=== PATIENT | female | born 1935 | race Caucasian/White ===

== ENCOUNTER 2017-07-03 14:41 | Inpatient (IN) | payer MEDICARE, OTHER ==
[~2017-07-03] VITALS: Ht 167.6 cm; Wt 78.1 kg
[2017-07-03 14:51] VITALS: BP 205/93; PULSE 67; RESP 18; TEMP 98.3; O2SAT 96
[2017-07-03 19:20] VITALS: BP 191/90; PULSE 75; RESP 18; O2SAT 97
--- NOTE | 2017-07-03 19:59 | PD ---
HPI Chief Complaint: Psychiatric Symptoms Time Seen by Provider: 19:19 Travel History International Travel<30 days: No Contact w/Intl Traveler<30days: No Traveled to known affect area: No History of Present Illness HPI 81-year-old female presents to the emergency room with her daughter for evaluation of anxiety and depression for the past month. Patient's daughter states she has had worsening mental status over the past month it has become increasingly emotionally dependent on her. Daughter states she can no longer leave the house because the patient becomes so anxious and panicky that she constantly calls asking where she is, complaining of chest tightness, shortness of breath, and nausea radiating into her throat and states she needs to go to the hospital. Symptoms are constant but are slightly better when she is around her daughter. She paces around the house, tearful, and often reminisce is about the past. Daughter states she has also had increasing confusion and patient admits to increasing fogginess. She can offer no reason for feeling anxious or depressed. No suicidal or homicidal ideation, hallucinations, or delusions. Denies drug use or alcohol use. She has been seeing a new psychiatrist over the past month who recently prescribed her new medications for anxiety. Patient states she has been taking Vistaril 3 times daily without any relief. 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 She has 3 stents. She went to [facility] one month ago for these symptoms and was diagnosed with "silent heart attack." She was hospitalized for 3 days. Patient 's daughter states her blood pressure is consistently elevated over 200s and they cannot get it under control. She ambulates with a cane. PFSH Past Medical History Alzheimer's Disease: Yes Anxiety: Yes Depression: Yes Cancer: Yes (SKIN AND BREAST) Cardiovascular Problems: Yes High Cholesterol: Yes Dementia: Yes Hypertension: Yes Myocardial Infarction: Yes Tetanus Vaccination: Unknown Influenza Vaccination: No ?: Not Past Surgical History Coronary Stent: Yes Social History Alcohol Use: No Tobacco Use: No Substance Use: No Allergies-Medications (Allergen,Severity, Reaction): Coded Allergies: codeine (Verified Allergy, Unknown, 07/03/17) latex (Verified Allergy, Unknown, 07/03/17) Review of Systems Except as stated in HPI: all other systems reviewed are Neg Physical Exam Narrative GENERAL: Well-nourished, well-developed female in no acute distress. Afebrile. SKIN: Focused skin assessment warm/dry. HEAD: Normocephalic. EYES: No scleral icterus. No injection or drainage. NECK: Supple, trachea midline. No JVD or lymphadenopathy. CARDIOVASCULAR: Regular rate and rhythm without murmurs, gallops, or rubs. RESPIRATORY: Breath sounds equal bilaterally. No accessory muscle use. PSYCHIATRIC: No delusional thought processes. No hallucinations. Depressed mood. Tearful. Normal affect. Data Data Last Documented VS Vital Signs Date Time Temp Pulse Resp B/P (MAP) Pulse Ox O2 Delivery O2 Flow Rate FiO2 07/03/17 19:20 75 18 191/90 (123) 97 07/03/17 14:51 98.3 Room Air Orders Orders Complete Blood Count With Diff (07/03/17 19:49) Comprehensive Metabolic Panel (07/03/17 19:49) Thyroid Stimulating Hormone (07/03/17 19:49) Urinalysis - C+S If Indicated (07/03/17 19:49) Electrocardiogram (07/03/17 19:49) Psych Screen (07/03/17 19:49) Drug Screen, Random Urine (07/03/17 19:49) Alcohol (Ethanol) (07/03/17 19:49) Troponin I (07/03/17 19:52) Ckmb (Isoenzyme) Profile (07/03/17 19:52) MDM Medical Decision Making Medical Screen Exam Complete: Yes Emergency Medical Condition: Yes Medical Record Reviewed: Yes Differential Diagnosis Dementia, Alzheimer's disease, depression, anxiety, CAD Narrative Course 81-year-old female presents to the emergency room for evaluation of anxiety and depression that has been increasing over the past month. Patient presents with daughter who provides most of the history. States she has been having increasing anxiety after her daughter leaves for work. Patient reports chest tightness that radiates into her throat with associated nausea and shortness of breath. States she has been having this feeling for the past month and it is constant. Worsened when her daughter leaves the house. She cannot a why she is anxious. Denies suicidal or homicidal ideation. She has also had increasing confusion and fogginess. Of note, patient was hospitalized a few weeks ago for "silent heart attack." She has 3 stents and 3 previous heart attacks. She is tearful during exam. I suspect dementia or beginning stages of Alzheimer's disease. IV access established and basic labs obtained. Patient signed out to nighttime provider. Condition: Stable Anisa Lynch Jul 03, 2017 19:59
[2017-07-03 21:35] LABS: AUTOMATED NEUTROPHIL # 6.7 TH/MM3 (1.8-7.7); BASOPHIL # 0.1 TH/MM3 (0-0.2); BASOPHIL % 0.9 % (0.0-2.0); EOSINOPHIL # 0.1 TH/MM3 (0-0.4); EOSINOPHIL % 1.1 % (0.0-4.0); HEMATOCRIT 42.3 % (35.0-46.0); HEMO FLAGS DIFF FINAL; LYMPHOCYTE # 1.8 TH/MM3 (1.0-4.8); MEAN CELL VOLUME 83.3 FL (80.0-100.0); MEAN CORPUSCULAR HEMOGLOBIN 28.2 PG (27.0-34.0); MEAN CORPUSCULAR HGB CONC 33.9 % (32.0-36.0); MONO % 8.6 % (0.0-8.0); NEUT % 70.4 % (16.0-70.0); PLATELET COUNT 327 TH/MM3 (150-450); RED BLOOD COUNT 5.07 MIL/MM3 (4.00-5.30); RED CELL DISTRIBUTION WIDTH 13.7 % (11.6-17.2); WHITE BLOOD COUNT 9.5 TH/MM3 (4.0-11.0)
[2017-07-03 21:47] LABS: ALCOHOL LESS THAN 3 MG/DL (0-5); ANION GAP 8 MEQ/L (5-15); AST (GOT) 20 U/L (15-37); BICARBONATE 24.7 MEQ/L (21.0-32.0); BLOOD UREA NITROGEN 17 MG/DL (7-18); CHLORIDE 108 MEQ/L (98-107); GLOMERULAR FILTRATION RATE 67 ML/MIN (>89); POTASSIUM 3.4 MEQ/L (3.5-5.1); SODIUM (NA) 141 MEQ/L (136-145)
[2017-07-03 21:48] LABS: ALT (GPT) 29 U/L (10-53)
[2017-07-03 21:52] LABS: CREATINE KINASE 155 U/L (26-192)
[2017-07-03 21:58] LABS: ALKALINE PHOSPHATASE 83 U/L (45-117); TOTAL BILIRUBIN ADULT 0.3 MG/DL (0.2-1.0)
[2017-07-03 22:05] LABS: CKMB 2.4 NG/ML (0.5-3.6)
--- NOTE | 2017-07-03 22:11 | PD ---
Physical Exam Narrative Patient was seen by my foundation assistant and signed out to me. Data Data Last Documented VS Vital Signs Date Time Temp Pulse Resp B/P (MAP) Pulse Ox O2 Delivery O2 Flow Rate FiO2 07/03/17 19:20 75 18 191/90 (123) 97 07/03/17 14:51 98.3 Room Air Orders Orders Complete Blood Count With Diff (07/03/17 19:49) Comprehensive Metabolic Panel (07/03/17 19:49) Thyroid Stimulating Hormone (07/03/17 19:49) Urinalysis - C+S If Indicated (07/03/17 19:49) Psych Screen (07/03/17 19:49) Drug Screen, Random Urine (07/03/17 19:49) Alcohol (Ethanol) (07/03/17 19:49) Troponin I (07/03/17 19:52) Ckmb (Isoenzyme) Profile (07/03/17 19:52) CKMB (07/03/17 21:05) CKMB% (07/03/17 21:05) Labs Laboratory Tests Test 07/03/17 21:05 White Blood Count 9.5 TH/MM3 Red Blood Count 5.07 MIL/MM3 Hemoglobin 14.3 GM/DL Hematocrit 42.3 % Mean Corpuscular Volume 83.3 FL Mean Corpuscular Hemoglobin 28.2 PG Mean Corpuscular Hemoglobin Concent 33.9 % Red Cell Distribution Width 13.7 % Platelet Count 327 TH/MM3 Mean Platelet Volume 7.6 FL Neutrophils (%) (Auto) 70.4 % Lymphocytes (%) (Auto) 19.0 % Monocytes (%) (Auto) 8.6 % Eosinophils (%) (Auto) 1.1 % Basophils (%) (Auto) 0.9 % Neutrophils # (Auto) 6.7 TH/MM3 Lymphocytes # (Auto) 1.8 TH/MM3 Monocytes # (Auto) 0.8 TH/MM3 Eosinophils # (Auto) 0.1 TH/MM3 Basophils # (Auto) 0.1 TH/MM3 CBC Comment DIFF FINAL Differential Comment Blood Urea Nitrogen 17 MG/DL Creatinine 0.82 MG/DL Random Glucose 92 MG/DL Total Protein 7.9 GM/DL Albumin 3.8 GM/DL Calcium Level 9.6 MG/DL Alkaline Phosphatase 83 U/L Aspartate Amino Transf (AST/SGOT) 20 U/L Alanine Aminotransferase (ALT/SGPT) 29 U/L Total Bilirubin 0.3 MG/DL Sodium Level 141 MEQ/L Potassium Level 3.4 MEQ/L Chloride Level 108 MEQ/L Carbon Dioxide Level 24.7 MEQ/L Anion Gap 8 MEQ/L Estimat Glomerular Filtration Rate 67 ML/MIN Total Creatine Kinase 155 U/L Creatine Kinase MB 2.4 NG/ML Troponin I LESS THAN 0.02 NG/ML Thyroid Stimulating Hormone 3rd Gen 1.320 uIU/ML Ethyl Alcohol Level LESS THAN 3 MG/DL MDM Supervised Visit with EMERALD: Yes Interpretation(s) 22:08 PM. CBC within normal limit. Potassium 3.4. Cardiac enzymes are normal. Alcohol less than 3. Narrative Course 22:11 PM. Patient is medically cleared for psychiatric evaluation and disposition. Condition: Stable Felix Phillip MD Jul 03, 2017 22:11
[2017-07-03] MEDS ORDERED: ALPRAZolam 0.5 MG TAB PO ONE (23:30)
[2017-07-03 23:47] LABS: BACTERIA, URINE RARE /hpf; BLOOD, URINE SMALL (NEG); COMMENT (UR) CULT NOT INDICATED; CULTURE IF INDICATED CULT NOT INDICATED; GLUCOSE,URINE NEG (NEG); KETONE, URINE NEG (NEG); MUCUS URINE FEW /lpf (OCC); NITRITE,URINE NEG (NEG); URINE COLOR LIGHT-YELLOW (YELLW/STRAW)
[2017-07-04] MEDS ORDERED: HYDR-755 PO (00:25)
[2017-07-04] MEDS ORDERED: AMLO5TAB2 PO (00:25)
[2017-07-04] MEDS ORDERED: ROSU1TAB8 PO (00:25)
[2017-07-04] MEDS ORDERED: ZOLP10TA3 PO (00:25)
[2017-07-04] MEDS ORDERED: NITR0.4S SL (00:25)
[2017-07-04] MEDS ORDERED: LOSA100T PO (00:25)
[2017-07-04] MEDS ORDERED: ASPI81CH37 CHEW (00:25)
[2017-07-04] MEDS ORDERED: METO100T PO (00:25)
[2017-07-04] MEDS ORDERED: TOVI4TAB PO (00:25)
[2017-07-04] MEDS ORDERED: BUSP10TA PO (00:25)
[2017-07-04] MEDS ORDERED: CLOP75TA PO (00:25)
[2017-07-04] MEDS ORDERED: MAGNESIUM HYDROXIDE SUSP 30 ML CUP PO PRN (04:15)
[2017-07-04] MEDS ORDERED: ALUMINUM/MAGNESIUM/SIMETH 30 ML CUP PO PRN (04:15)
[2017-07-04] MEDS ORDERED: LORazepam 2 MG/ML VIAL - age > 65 yrs IM PRN ×2 (04:15)
[2017-07-04] MEDS ORDERED: LORazepam 0.5 MG TAB age > 65 yrs PO PRN (04:15)
[2017-07-04 04:32] VITALS: BP 168/74; PULSE 72; RESP 14; O2SAT 96
[2017-07-04 05:00] VITALS: BP 185/82; PULSE 71; RESP 18; TEMP 97.5; O2SAT 96
[2017-07-04] MEDS: NICOTINE 21 MG/24 HR PATCH T-DERMAL SCH (09:00)
[2017-07-04] MEDS: busPIRone HCL 10 MG TAB PO SCH ×2 (09:00→20:24)
[2017-07-04] MEDS: ATORVASTATIN 40 MG TAB PO SCH (09:00)
[2017-07-04] MEDS: TOLTERODINE TARTRATE 4 MG CAP LA PO SCH (09:00)
[2017-07-04] MEDS: METOPROLOL TARTRATE 100 MG TAB PO SCH ×2 (09:04→20:24)
[2017-07-04] MEDS: LOSARTAN 50 MG TAB PO SCH (09:05)
[2017-07-04] MEDS: ASPIRIN 81 MG CHEW TAB PO SCH (09:05)
[2017-07-04] MEDS: amLODIPine BESYLATE 5 MG TAB PO SCH (09:06)
[2017-07-04] MEDS: CLOPIDOGREL 75 MG TAB PO SCH (09:06)
[2017-07-04 11:05] LABS: ANION GAP 9 MEQ/L (5-15); BICARBONATE 26.2 MEQ/L (21.0-32.0); BLOOD UREA NITROGEN 16 MG/DL (7-18); CHLORIDE 103 MEQ/L (98-107); GLOMERULAR FILTRATION RATE 72 ML/MIN (>89); POTASSIUM 3.8 MEQ/L (3.5-5.1); SODIUM (NA) 138 MEQ/L (136-145)
[2017-07-04 11:20] LABS: HDL CHOLESTEROL 51.2 MG/DL (40.0-60.0); LDL CHOLESTEROL 59 MG/DL (0-99); THYROXINE (T4) 9.1 MCG/DL (4.8-13.9)
[2017-07-04 13:57] VITALS: BP 121/64; PULSE 66; RESP 17
--- NOTE | 2017-07-04 14:20 | PD.CONS ---
HPI Service [facility] Hospitalists Consult Requested By Dr. Platt Reason for Consult Medical management, HTN Primary Care Physician Cheryl Mo MD Diagnoses: History of Present Illness This is a 81-year-old female patient with past medical history which includes anxiety, arthritis, coronary artery disease with recent cardiac catheterization drug-eluting stent placed to the RCA on 06/19/2017, hypertension, major depressive skin cancer, peripheral neuropathy and dementia. Patient is currently admitted to the inpatient psychiatric anterior [place] consulted for assistance with medical management primarily hypertension. Patient takes losartan 100 mg by mouth daily, amlodipine 5 mg by mouth daily and metoprolol 100 mg by mouth twice a day at home. Patient does appear anxious and notes herself but her anxiety increases her blood pressure. Patient denies headaches changes in vision feeling dizzy lightheaded and nauseous vomiting diarrhea constipation fevers chills cough shortness of breath or chest pain. Review of Systems Constitutional: DENIES: Fatigue, Fever, Chills Eyes: DENIES: Blurred vision, Diplopia, Vision loss Respiratory: DENIES: Cough, Sputum production, Shortness of breath Cardiovascular: DENIES: Chest pain, Palpitations, Dyspnea on Exertion, Lower Extremity Edema Gastrointestinal: DENIES: Abdominal pain, Constipation, Diarrhea Neurologic: COMPLAINS OF: Poor Balance (secondary to peripheral neuropathy), DENIES: Abnormal gait, Headache, Localized weakness, Speech Problems Psychiatric: COMPLAINS OF: Anxiety, DENIES: Depression, Hallucinations Past Family Social History Past Medical History anxiety, arthritis, coronary artery disease with recent cardiac catheterization drug-eluting stent placed to the RCA on 06/19/2017, hypertension, major depressive skin cancer, peripheral neuropathy and dementia Past Surgical History Cardiac catheterization with stent placement 06/19/2017 Appendectomy Right breast lumpectomy Reported Medications Nitrostat SL (Nitroglycerin) 0.4 Mg Subl 0.4 Mg SL DIRECTED PRN 1 tablet under the tongue as needed for chest pain. Repeat every 5 minutes for a total of 3 DOSES or call 911 if NO relief. Aspirin Low Dose (Aspirin) 81 Mg Chew 81 Mg CHEW DAILY Toviaz ER (Fesoterodine Fumarate) 4 mg Emmett 4 Mg PO DAILY Amlodipine (Amlodipine Besylate) 5 Mg Tab 5 Mg PO DAILY Rosuvastatin (Rosuvastatin Calcium) 20 Mg Tab 20 Mg PO DAILY Metoprolol Tartrate 100 Mg Tab 100 Mg PO BID Hydroxyzine HCl 10 Mg Tab 10 Mg PO TID Buspirone (Buspirone HCl) 10 Mg Tab 10 Mg PO BID Zolpidem (Zolpidem Tartrate) 10 Mg Tab 10 Mg PO HS PRN Clopidogrel (Clopidogrel Bisulfate) 75 Mg Tab 75 Mg PO DAILY Losartan (Losartan Potassium) 100 Mg Tab 100 Mg PO DAILY Allergies: Coded Allergies: codeine (Verified Allergy, Unknown, 07/03/17) latex (Verified Allergy, Unknown, 07/03/17) Active Ordered Medications Current Medications Medications (Trade) Dose Ordered Sig/Jacklyn Route Start Time Stop Time Status Last Admin (Tylenol) 650 mg Q4H PRN PO 07/04/17 04:15 (Milk Of Magnesia Liq) 30 ml DAILY PRN PO 07/04/17 04:15 (Mag-Al Plus Susp Liq) 30 ml Q6H PRN PO 07/04/17 04:15 (Habitrol 21 Mg Patch.24 Hr) 1 patch DAILY T-DERMAL 07/04/17 09:00 Miscellaneous Information 1 HS T-DERMAL 07/04/17 21:00 (Ativan) 0.5 mg Q6H PRN PO 07/04/17 04:15 (Ativan Inj) 0.5 mg Q6H PRN IM 07/04/17 04:15 (Cozaar) 100 mg DAILY PO 07/04/17 09:00 07/04/17 09:05 (Plavix) 75 mg DAILY PO 07/04/17 09:00 07/04/17 09:06 (Ambien) 10 mg HS PRN PO 07/04/17 04:15 (Buspar) 10 mg BID PO 07/04/17 09:00 (Lopressor) 100 mg BID PO 07/04/17 09:00 07/04/17 09:04 (Norvasc) 5 mg DAILY PO 07/04/17 09:00 07/04/17 09:06 (Lipitor) 40 mg DAILY PO 07/04/17 09:00 07/04/17 09:00 (Detrol La) 4 mg DAILY PO 07/04/17 09:00 07/04/17 09:00 (Aspirin Chew) 81 mg DAILY PO 07/04/17 09:00 07/04/17 09:05 (Ativan) 0.5 mg BID PO 07/04/17 21:00 UNV (Lexapro) 10 mg DAILY PO 07/05/17 09:00 UNV Family History noncontributory Social History Denies tobacco use in the past Denies EtOH use Physical Exam Vital Signs Vital Signs Date Time Temp Pulse Resp B/P (MAP) Pulse Ox O2 Delivery O2 Flow Rate FiO2 07/04/17 13:57 66 17 121/64 (83) 07/04/17 05:00 97.5 71 18 185/82 (116) 96 07/04/17 04:52 07/04/17 04:32 72 14 168/74 (105) 96 07/03/17 19:20 75 18 191/90 (123) 97 07/03/17 14:51 98.3 67 18 205/93 (130) 96 Room Air Physical Exam GENERAL: This is a well-nourished, well-developed patient, anxious in appearance SKIN: No rashes, ecchymoses or lesions. Cool and dry. HEAD: Atraumatic. Normocephalic. No temporal or scalp tenderness. EYES: Extraocular motions intact. No scleral icterus. No injection or drainage. ENT: Nose without bleeding, purulent drainage or septal hematoma. Throat without erythema, tonsillar hypertrophy or exudate. Uvula midline. Airway patent. NECK: Trachea midline. No JVD or lymphadenopathy. Supple, nontender, no meningeal signs. CARDIOVASCULAR: Regular rate and rhythm RESPIRATORY: Clear to auscultation. GASTROINTESTINAL: Abdomen soft, non-tender, nondistended. MUSCULOSKELETAL: Extremities without clubbing, cyanosis, or edema. No joint tenderness, effusion, or edema noted. No calf tenderness. Negative Homans sign bilaterally. NEUROLOGICAL: Awake and alert. No focal deficits appreciated. Motor and sensory grossly within normal limits. Five out of 5 muscle strength in all muscle groups. Normal speech. Laboratory Laboratory Tests Test 07/03/17 21:05 07/03/17 23:30 07/04/17 09:45 White Blood Count 9.5 Red Blood Count 5.07 Hemoglobin 14.3 Hematocrit 42.3 Mean Corpuscular Volume 83.3 Mean Corpuscular Hemoglobin 28.2 Mean Corpuscular Hemoglobin Concent 33.9 Red Cell Distribution Width 13.7 Platelet Count 327 Mean Platelet Volume 7.6 Neutrophils (%) (Auto) 70.4 Lymphocytes (%) (Auto) 19.0 Monocytes (%) (Auto) 8.6 Eosinophils (%) (Auto) 1.1 Basophils (%) (Auto) 0.9 Neutrophils # (Auto) 6.7 Lymphocytes # (Auto) 1.8 Monocytes # (Auto) 0.8 Eosinophils # (Auto) 0.1 Basophils # (Auto) 0.1 CBC Comment DIFF FINAL Differential Comment Blood Urea Nitrogen 17 16 Creatinine 0.82 0.77 Random Glucose 92 89 Total Protein 7.9 Albumin 3.8 Calcium Level 9.6 9.2 Alkaline Phosphatase 83 Aspartate Amino Transf (AST/SGOT) 20 Alanine Aminotransferase (ALT/SGPT) 29 Total Bilirubin 0.3 Sodium Level 141 138 Potassium Level 3.4 3.8 Chloride Level 108 103 Carbon Dioxide Level 24.7 26.2 Anion Gap 8 9 Estimat Glomerular Filtration Rate 67 72 Total Creatine Kinase 155 Creatine Kinase MB 2.4 Troponin I LESS THAN 0.02 Thyroid Stimulating Hormone 3rd Gen 1.320 Ethyl Alcohol Level LESS THAN 3 Urine Color LIGHT-YELLOW Urine Turbidity CLEAR Urine pH 6.0 Urine Specific Hatch 1.016 Urine Protein TRACE Urine Glucose (UA) NEG Urine Ketones NEG Urine Occult Blood SMALL Urine Nitrite NEG Urine Bilirubin NEG Urine Urobilinogen LESS THAN 2.0 Urine Leukocyte Esterase NEG Urine RBC 10 Urine WBC 1 Urine Bacteria RARE Urine Mucus FEW Microscopic Urinalysis Comment CULT NOT INDICATED Urine Opiates Screen NEG Urine Barbiturates Screen NEG Urine Amphetamines Screen NEG Urine Benzodiazepines Screen NEG Urine Cocaine Screen NEG Urine Cannabinoids Screen NEG Eosinophil Count 100 Triglycerides Level 252 Cholesterol Level 161 LDL Cholesterol 59 HDL Cholesterol 51.2 Cholesterol/HDL Ratio 3.14 Folate GREATER THAN 20.0 Thyroxine (T4) 9.1 Result Diagram: 07/03/17 0495 07/04/17 8568 Assessment and Plan Problem List: (1) HTN (hypertension) ICD Codes: I10 - Essential (primary) hypertension Plan: HTN - Continue patient's home antihypertensive regimen which includes losartan 100 mg by mouth daily, metoprolol 100 mg by mouth twice a day and amlodipine 5 mg by mouth daily - Monitor blood pressure trend - And clonidine 0.1 mg by mouth every 6 hours as needed for systolic blood pressure greater than 170 Anxiety/depression - Management per psychiatric team CAD with recent cardiac stent placement - Continue Plavix and aspirin. Patient denies chest pain shortness of breath at this time Dementia recommend patient follow-up with primary care provider after discharge DVT prophylaxis patient is ambulatory and low risk (2) Anxiety and depression ICD Codes: F41.8 - Other specified anxiety disorders (3) Dementia ICD Codes: F03.90 - Unspecified dementia without behavioral disturbance (4) CAD (coronary artery disease) ICD Codes: I25.10 - Atherosclerotic heart disease of [place] coronary artery without angina pectoris Assessment and Plan Patient examined. Assessment and plan formulated with Emelyn Mancilla PA-C. I agree with the above. Emelyn Mancilla Jul 04, 2017 14:20 Luis Garcia MD Jul 04, 2017 20:37
[2017-07-04 15:26] LABS: HEMOGLOBIN A1a 1.3 %; HEMOGLOBIN Ao 83.4 %; HEMOGLOBIN F 1.1 %; HEMOGLOBIN LA1C 2.1 %; HEMOGLOBIN P3 4.3 %
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
[2017-07-04 18:00] VITALS: BP 104/52; PULSE 61; RESP 16; TEMP 97.9; O2SAT 95
[2017-07-04] MEDS: ACETAMINOPHEN 325 MG TAB PO PRN (18:08)
[2017-07-04] MEDS: LORazepam 1 MG TAB PO SCH (20:24)
[2017-07-04] MEDS: REMOVE OLD NICOTINE PATCH T-DERMAL SCH (20:26)
[2017-07-04] MEDS: ZOLPIDEM TARTRATE 10 MG TAB PO PRN (21:24)
[2017-07-05 05:42] VITALS: BP 118/65; PULSE 66; RESP 16; TEMP 97.6; O2SAT 94
[2017-07-05] MEDS ORDERED: NON-FORMULARY DRUG (Rosuvastatin 20 MG) PO SCH (09:00)
[2017-07-05] MEDS: NICOTINE 21 MG/24 HR PATCH T-DERMAL SCH (09:00)
[2017-07-05] MEDS: METOPROLOL TARTRATE 50 MG TAB PO SCH ×2 (09:00→20:21)
[2017-07-05] MEDS: TOLTERODINE TARTRATE 4 MG CAP LA PO SCH (09:37)
[2017-07-05] MEDS: amLODIPine BESYLATE 5 MG TAB PO SCH (09:37)
[2017-07-05] MEDS: ESCITALOPRAM OXALATE 10 MG TAB PO SCH (09:37)
[2017-07-05] MEDS: busPIRone HCL 10 MG TAB PO SCH ×2 (09:38→20:20)
[2017-07-05] MEDS: CLOPIDOGREL 75 MG TAB PO SCH (09:38)
[2017-07-05] MEDS: ASPIRIN 81 MG CHEW TAB PO SCH (09:38)
[2017-07-05] MEDS: LORazepam 1 MG TAB PO SCH ×2 (09:38→20:21)
[2017-07-05] MEDS: LOSARTAN 50 MG TAB PO SCH (09:38)
[2017-07-05] MEDS: ATORVASTATIN 40 MG TAB PO SCH (09:38)
[2017-07-05] MEDS: ACETAMINOPHEN 325 MG TAB PO PRN (13:45)
[2017-07-05] MEDS: LORazepam 0.5 MG TAB age > 65 yrs PO PRN (15:15)
[2017-07-05 18:40] VITALS: BP 134/65; PULSE 87; RESP 16; TEMP 99.6; O2SAT 96
[2017-07-05] MEDS: REMOVE OLD NICOTINE PATCH T-DERMAL SCH (20:38)
[2017-07-05] MEDS: ZOLPIDEM TARTRATE 10 MG TAB PO PRN (22:17)
[2017-07-06 06:22] VITALS: BP 182/79; PULSE 59; RESP 16; TEMP 97.5; O2SAT 98
[2017-07-06] MEDS: cloNIDine HCL 0.1 MG TAB PO PRN (06:48)
[2017-07-06] MEDS: METOPROLOL TARTRATE 50 MG TAB PO SCH ×2 (09:00→21:29)
[2017-07-06] MEDS: busPIRone HCL 10 MG TAB PO SCH ×2 (09:00→21:29)
[2017-07-06] MEDS: TOLTERODINE TARTRATE 4 MG CAP LA PO SCH (09:00)
[2017-07-06] MEDS: NICOTINE 21 MG/24 HR PATCH T-DERMAL SCH (09:00)
[2017-07-06] MEDS: amLODIPine BESYLATE 5 MG TAB PO SCH (09:36)
[2017-07-06] MEDS: ESCITALOPRAM OXALATE 10 MG TAB PO SCH (09:36)
[2017-07-06] MEDS: ATORVASTATIN 40 MG TAB PO SCH (09:36)
[2017-07-06] MEDS: LOSARTAN 50 MG TAB PO SCH (09:36)
[2017-07-06] MEDS: ASPIRIN 81 MG CHEW TAB PO SCH (09:36)
[2017-07-06] MEDS: CLOPIDOGREL 75 MG TAB PO SCH (09:36)
[2017-07-06] MEDS: LORazepam 1 MG TAB PO SCH ×2 (09:37→21:29)
[2017-07-06] MEDS: LORazepam 0.5 MG TAB age > 65 yrs PO PRN (16:57)
[2017-07-06 18:08] VITALS: BP 132/69; PULSE 79; RESP 18; TEMP 98; O2SAT 96
[2017-07-06] MEDS: REMOVE OLD NICOTINE PATCH T-DERMAL SCH (21:00)
[2017-07-07] MEDS: LORazepam 0.5 MG TAB age > 65 yrs PO PRN (04:17)
[2017-07-07 06:49] VITALS: BP 135/76; PULSE 63; RESP 17; TEMP 97.5; O2SAT 96
[2017-07-07] MEDS: LOSARTAN 50 MG TAB PO SCH (08:39)
[2017-07-07] MEDS: busPIRone HCL 10 MG TAB PO SCH ×2 (08:40→22:09)
[2017-07-07] MEDS: TOLTERODINE TARTRATE 4 MG CAP LA PO SCH (08:40)
[2017-07-07] MEDS: ASPIRIN 81 MG CHEW TAB PO SCH (08:40)
[2017-07-07] MEDS: amLODIPine BESYLATE 5 MG TAB PO SCH (08:40)
[2017-07-07] MEDS: ESCITALOPRAM OXALATE 10 MG TAB PO SCH (08:40)
[2017-07-07] MEDS: METOPROLOL TARTRATE 50 MG TAB PO SCH ×2 (08:40→22:09)
[2017-07-07] MEDS: LORazepam 1 MG TAB PO SCH ×2 (08:40→22:09)
[2017-07-07] MEDS: ATORVASTATIN 40 MG TAB PO SCH (08:40)
[2017-07-07] MEDS: CLOPIDOGREL 75 MG TAB PO SCH (08:40)
[2017-07-07] MEDS: NICOTINE 21 MG/24 HR PATCH T-DERMAL SCH (08:48)
[2017-07-07 20:17] VITALS: BP 149/51; PULSE 80; RESP 17; TEMP 98.3; O2SAT 97
[2017-07-07] MEDS: REMOVE OLD NICOTINE PATCH T-DERMAL SCH (21:00)
[2017-07-07] MEDS: ZOLPIDEM TARTRATE 10 MG TAB PO PRN (22:23)
[2017-07-08 06:40] VITALS: BP 136/72; PULSE 62; TEMP 97.4; O2SAT 97
[2017-07-08] MEDS: NICOTINE 21 MG/24 HR PATCH T-DERMAL SCH (09:00)
[2017-07-08] MEDS: ESCITALOPRAM OXALATE 10 MG TAB PO SCH (09:34)
[2017-07-08] MEDS: TOLTERODINE TARTRATE 4 MG CAP LA PO SCH (09:35)
[2017-07-08] MEDS: busPIRone HCL 10 MG TAB PO SCH ×2 (09:35→21:28)
[2017-07-08] MEDS: amLODIPine BESYLATE 5 MG TAB PO SCH (09:35)
[2017-07-08] MEDS: ATORVASTATIN 40 MG TAB PO SCH (09:35)
[2017-07-08] MEDS: ASPIRIN 81 MG CHEW TAB PO SCH (09:35)
[2017-07-08] MEDS: METOPROLOL TARTRATE 50 MG TAB PO SCH ×2 (09:35→21:28)
[2017-07-08] MEDS: CLOPIDOGREL 75 MG TAB PO SCH (09:35)
[2017-07-08] MEDS: LOSARTAN 50 MG TAB PO SCH (09:35)
[2017-07-08] MEDS: LORazepam 1 MG TAB PO SCH ×2 (09:37→21:28)
[2017-07-08 16:00] VITALS: BP 167/76; PULSE 66; RESP 18; TEMP 97.6; O2SAT 98
[2017-07-08] MEDS: LORazepam 0.5 MG TAB age > 65 yrs PO PRN (17:51)
[2017-07-08] MEDS: REMOVE OLD NICOTINE PATCH T-DERMAL SCH (21:00)
[2017-07-08] MEDS: ZOLPIDEM TARTRATE 10 MG TAB PO PRN (21:36)
[2017-07-09 06:00] VITALS: BP 180/85; PULSE 56; RESP 17; TEMP 97.8; O2SAT 95
[2017-07-09] MEDS: NICOTINE 21 MG/24 HR PATCH T-DERMAL SCH (09:00)
[2017-07-09] MEDS: ATORVASTATIN 40 MG TAB PO SCH (09:09)
[2017-07-09] MEDS: TOLTERODINE TARTRATE 4 MG CAP LA PO SCH (09:09)
[2017-07-09] MEDS: LORazepam 1 MG TAB PO SCH ×2 (09:10→21:48)
[2017-07-09] MEDS: ASPIRIN 81 MG CHEW TAB PO SCH (09:10)
[2017-07-09] MEDS: ESCITALOPRAM OXALATE 10 MG TAB PO SCH (09:10)
[2017-07-09] MEDS: LOSARTAN 50 MG TAB PO SCH (09:10)
[2017-07-09] MEDS: METOPROLOL TARTRATE 50 MG TAB PO SCH ×2 (09:10→21:49)
[2017-07-09] MEDS: busPIRone HCL 10 MG TAB PO SCH ×2 (09:11→21:48)
[2017-07-09] MEDS: amLODIPine BESYLATE 5 MG TAB PO SCH (09:11)
[2017-07-09] MEDS: CLOPIDOGREL 75 MG TAB PO SCH (09:11)
[2017-07-09] MEDS: LORazepam 0.5 MG TAB age > 65 yrs PO PRN (16:49)
[2017-07-09] MEDS: cloNIDine HCL 0.1 MG TAB PO PRN (17:27)
[2017-07-09 17:30] VITALS: BP 197/89; PULSE 67; RESP 16; TEMP 98
[2017-07-09 19:14] VITALS: BP 150/69; PULSE 63
[2017-07-09] MEDS: REMOVE OLD NICOTINE PATCH T-DERMAL SCH (21:00)
[2017-07-09] MEDS: ZOLPIDEM TARTRATE 10 MG TAB PO PRN (21:51)
[2017-07-10 06:05] VITALS: BP 148/67; PULSE 58; RESP 16; TEMP 98.2; O2SAT 95
[2017-07-10] MEDS: LORazepam 0.5 MG TAB age > 65 yrs PO PRN (06:46)
[2017-07-10] MEDS: busPIRone HCL 10 MG TAB PO SCH ×2 (08:14→20:53)
[2017-07-10] MEDS: LOSARTAN 50 MG TAB PO SCH (08:14)
[2017-07-10] MEDS: METOPROLOL TARTRATE 50 MG TAB PO SCH ×3 (08:14→20:55)
[2017-07-10] MEDS: ESCITALOPRAM OXALATE 10 MG TAB PO SCH (08:14)
[2017-07-10] MEDS: TOLTERODINE TARTRATE 4 MG CAP LA PO SCH (08:14)
[2017-07-10] MEDS: amLODIPine BESYLATE 5 MG TAB PO SCH (08:14)
[2017-07-10] MEDS: ASPIRIN 81 MG CHEW TAB PO SCH (08:14)
[2017-07-10] MEDS: CLOPIDOGREL 75 MG TAB PO SCH (08:14)
[2017-07-10] MEDS: ATORVASTATIN 40 MG TAB PO SCH (08:15)
[2017-07-10] MEDS: NICOTINE 21 MG/24 HR PATCH T-DERMAL SCH (09:00)
[2017-07-10] MEDS: LORazepam 1 MG TAB PO SCH ×2 (09:00→20:53)
[2017-07-10 18:29] VITALS: BP 119/55; PULSE 56; RESP 17; TEMP 97.4; O2SAT 93
[2017-07-10] MEDS: REMOVE OLD NICOTINE PATCH T-DERMAL SCH (20:57)
[2017-07-10] MEDS: ZOLPIDEM TARTRATE 10 MG TAB PO PRN (21:39)
[2017-07-11 06:35] VITALS: BP 152/84; PULSE 62; RESP 18; TEMP 97.8
[2017-07-11] MEDS: LOSARTAN 50 MG TAB PO SCH (08:38)
[2017-07-11] MEDS: CLOPIDOGREL 75 MG TAB PO SCH (08:39)
[2017-07-11] MEDS: ATORVASTATIN 40 MG TAB PO SCH (08:39)
[2017-07-11] MEDS: TOLTERODINE TARTRATE 4 MG CAP LA PO SCH (08:39)
[2017-07-11] MEDS: amLODIPine BESYLATE 5 MG TAB PO SCH (08:40)
[2017-07-11] MEDS: LORazepam 1 MG TAB PO SCH ×2 (08:40→20:41)
[2017-07-11] MEDS: ESCITALOPRAM OXALATE 10 MG TAB PO SCH (08:40)
[2017-07-11] MEDS: ASPIRIN 81 MG CHEW TAB PO SCH (08:40)
[2017-07-11] MEDS: busPIRone HCL 10 MG TAB PO SCH ×2 (08:40→20:42)
[2017-07-11] MEDS: METOPROLOL TARTRATE 50 MG TAB PO SCH ×2 (08:41→20:42)
[2017-07-11] MEDS: NICOTINE 21 MG/24 HR PATCH T-DERMAL SCH (09:00)
[2017-07-11] MEDS: LORazepam 0.5 MG TAB age > 65 yrs PO PRN (15:21)
[2017-07-11 18:00] VITALS: BP 148/65; PULSE 64; RESP 16; TEMP 97.6; O2SAT 97
[2017-07-11] MEDS: REMOVE OLD NICOTINE PATCH T-DERMAL SCH (20:42)
[2017-07-11] MEDS: ZOLPIDEM TARTRATE 10 MG TAB PO PRN (21:19)
[2017-07-12 06:28] VITALS: BP 159/74; PULSE 64; RESP 16; TEMP 98; O2SAT 95
[2017-07-12] MEDS: ESCITALOPRAM OXALATE 10 MG TAB PO SCH (08:57)
[2017-07-12] MEDS: LOSARTAN 50 MG TAB PO SCH (08:57)
[2017-07-12] MEDS: LORazepam 1 MG TAB PO SCH (08:58)
[2017-07-12] MEDS: TOLTERODINE TARTRATE 4 MG CAP LA PO SCH (08:58)
[2017-07-12] MEDS: ATORVASTATIN 40 MG TAB PO SCH (08:58)
[2017-07-12] MEDS: amLODIPine BESYLATE 5 MG TAB PO SCH (08:58)
[2017-07-12] MEDS: ASPIRIN 81 MG CHEW TAB PO SCH (08:58)
[2017-07-12] MEDS: busPIRone HCL 10 MG TAB PO SCH ×2 (08:58→21:31)
[2017-07-12] MEDS: CLOPIDOGREL 75 MG TAB PO SCH (08:58)
[2017-07-12] MEDS: METOPROLOL TARTRATE 50 MG TAB PO SCH ×2 (08:59→21:31)
[2017-07-12] MEDS: NICOTINE 21 MG/24 HR PATCH T-DERMAL SCH (09:00)
[2017-07-12] MEDS: ACETAMINOPHEN 325 MG TAB PO PRN (13:02)
--- NOTE | 2017-07-12 14:18 | PD.TTN ---
Patient Problems 1. Discharge planning 2. Medication compliance 3. Knowledge deficit 4. Lack of coping skills Progress Toward Goals Provider Present: Dr. Brody Platt Provider Input: Still wants to stay here inpatient her termite control servicer [place] can benefit from community resources with activities Nurse(s) Input: Christa : calmer, anxiety, needs activities outside the home Psychiatric Counselors Present: Sushma Espinal LCSW Psych Therapist Input: will give patient outside acitivities Group Spec/RT/OT/JOYNER Present: ANYA Oliva Group Spec/RT/OT/JOYNER Input: patient attends some groups and is cooperative and talks in conversations initiated Sushma Espinal LCSW Jul 12, 2017 14:18
[2017-07-12 17:47] VITALS: BP 154/69; PULSE 55; RESP 17; TEMP 97.8; O2SAT 93
[2017-07-12] MEDS: REMOVE OLD NICOTINE PATCH T-DERMAL SCH (21:00)
[2017-07-12] MEDS: LORazepam 0.5 MG TAB PO SCH (21:31)
[2017-07-12] MEDS: ZOLPIDEM TARTRATE 10 MG TAB PO PRN (21:31)
[2017-07-13 05:38] VITALS: BP 180/75; PULSE 56; RESP 16; TEMP 97.9; O2SAT 95
[2017-07-13] MEDS: cloNIDine HCL 0.1 MG TAB PO PRN (06:18)
[2017-07-13] MEDS: METOPROLOL TARTRATE 50 MG TAB PO SCH (08:13)
[2017-07-13] MEDS: amLODIPine BESYLATE 5 MG TAB PO SCH (08:13)
[2017-07-13] MEDS: ASPIRIN 81 MG CHEW TAB PO SCH (08:13)
[2017-07-13] MEDS: LORazepam 0.5 MG TAB PO SCH (08:13)
[2017-07-13] MEDS: TOLTERODINE TARTRATE 4 MG CAP LA PO SCH (08:13)
[2017-07-13] MEDS: busPIRone HCL 10 MG TAB PO SCH (08:13)
[2017-07-13] MEDS: LOSARTAN 50 MG TAB PO SCH (08:13)
[2017-07-13] MEDS: ATORVASTATIN 40 MG TAB PO SCH (08:13)
[2017-07-13] MEDS: CLOPIDOGREL 75 MG TAB PO SCH (08:13)
[2017-07-13] MEDS: NICOTINE 21 MG/24 HR PATCH T-DERMAL SCH (08:14)
[2017-07-13] MEDS: ESCITALOPRAM OXALATE 10 MG TAB PO SCH (08:14)
[2017-07-13] MEDS ORDERED: COZA50TA PO (08:52)
[2017-07-13] MEDS ORDERED: DETR4CAP PO (08:52)
[2017-07-13] MEDS ORDERED: AMLO5 PO (08:52)
[2017-07-13] MEDS ORDERED: LORA-392 PO (08:52)
[2017-07-13] MEDS ORDERED: PLAV75TA29 PO (08:52)
[2017-07-13] MEDS ORDERED: METO-309 PO (08:52)
[2017-07-13] MEDS ORDERED: ASPI81CH25 PO (08:52)
[2017-07-13] MEDS ORDERED: AMBI10TA PO (08:52)
[2017-07-13] MEDS ORDERED: ATOR40TA16 PO (08:52)
[2017-07-13] MEDS ORDERED: BUSP10TA PO (08:52)
[2017-07-13] MEDS ORDERED: ESCI10TA PO (08:52)
[2017-07-13 09:17] VITALS: BP 107/53
--- NOTE | 2017-07-13 18:56 | MD ---
cc: TIMBO ORTIZ ADMISSION DATE: 07/04/2017 DISCHARGE DATE: 07/13/2017 ADMISSION DIAGNOSIS [place] I: Major depressive disorder moderate, recurrent. Generalized anxiety disorder. Dementia mild [place] II: No diagnosis. [place] III: Coronary artery disease, hypertension, hyperlipidemia, status post cardiac cath/stent, arthritis, peripheral neuropathy. [place] IV: Severity of psychosocial stressors moderate i.e. recent move to a new geographical area, multiple medical issues, daughter's illness and daughter's divorce. [place] V: Current GAF score 40 DISCHARGE DIAGNOSIS [place] I: Major depressive disorder moderate, recurrent. Generalized anxiety disorder. Dementia mild [place] II: No diagnosis. [place] III: Coronary artery disease, hypertension, hyperlipidemia, status post cardiac cath/stent, arthritis, peripheral neuropathy. [place] IV: Severity of psychosocial stressors moderate i.e. recent move to a new geographical area, multiple medical issues, daughter's illness and daughter's divorce. [place] V: Current GAF score 60 This 81-year-old white female was brought to the emergency room of this hospital by her daughter because of increasing anxiety, depression. Prior to admission, she has been followed by Dr. Eric Lawson, her outpatient psychiatrist at [facility]. Please refer to my initial evaluation for details. LABORATORY FINDINGS CBC with differential unremarkable. CMP essentially unremarkable except hemoglobin A1c on 07/04/2017 was 6.3. Troponin level less than 0.02. CPK 155 normal. Triglycerides elevated at 252, HDL 51, TSH normal. Urine for drug screen negative. Blood alcohol level less than three. ROCIO negative. Routine urinalysis unremarkable. HOSPITAL COURSE When initially evaluated, Ms. Spangler was very anxious, apprehensive and sad looking. She seemed to be having difficulty coping with the identified psychosocial stressors. These were addressed in individual psychotherapy sessions and she began to gain some insight. The major issue was her feeling lonely at home as the daughter would be out to work. As such, she had decided to move back to [place] where she has good support system. This issue was further discussed in a joint session I had with her daughter who indicated this would not be feasible at this time as there is no apartment available in the complex she used to live. It is anticipated that an apartment will open in the next 3-4 months. Alternate placement in assisted living facility in the meantime was also considered, but this was not feasible due to her limited financial resources. As such, the daughter preferred that she return home Ms Solorio did not seem to be too keen about it due to fear of loneliness. This issue was again discussed at length in the treatment team meeting yesterday where the social work nurse will arrange for enrollment in community program such as [facility] and [facility]. This seemed to have reassured her to some extent. However, she continued to remain anxious about this. It was felt by the treatment team that prolonged hospital stay would further reinforce dependency on the hospital. To alleviate her depression, she was started on Lexapro and to reduce her anxiety, she was started on Ativan in addition to the BuSpar she has been taking prior to admission. It was felt necessary in view of the extremely high level of anxiety which contributed to increase in the blood pressure at times. Her anxiety level increased back once the discharge date was set for her. Her depression gradually began to lift. Initially, she was quite socially isolative but towards the end she began to interact with staff and peers and was often seen in the day room. Throughout this hospital stay, she did not exhibit any aggressive or self-destructive behavior nor did she make any threats of harm to self or others. Also during this hospital stay she was seen in consultation by Dr. Garcia and was considered medically stable for discharge. At the time of discharge, she is denying any suicidal or homicidal ideations. She is not exhibiting any acute psychotic symptoms. She is being discharged in the custody of her daughter with recommendations to continue individual psychotherapy through [facility] and also psychiatric followup through [facility]. Her discharge medications are 1. Norvasc 5 mg p.o. daily 14 day supply. 2. Aspirin 81 mg p.o. daily 14 day supply. 3. Atorvastatin 40 mg p.o. daily 14 day supply. 4. BuSpar 10 mg p.o. daily 14 day supply. 5. Plavix 75 mg p.o. daily 14-day supply. 6. Lexapro 20 mg p.o. daily 14-day supply with one refill. 7. Ativan 0.5 mg p.o. b.i.d. p.r.n. for anxiety, 14-day supply with one refill. 8. Prozac 100 mg p.o. daily 14-day supply. 9. Lopressor 50 mg q.12 h 14-day supply. 10. Detrol LA 4 mg p.o. daily 14-day supply. 11. Ambien 10 mg p.o. q.h.s. p.r.n. for insomnia 14 day supply. MD RYLIE Thibodeaux/ /5:48 PM /6:28 PM
== END 2017-07-13 10:30 | disposition home or self-care (01) | DRG 885 ==
LOC: NEPD 14:41 → NEDA 07-04 04:24 → H250 07-04 04:45
PROVIDERS: ADMIT Psychiatry & Neurology Psychiatry; ATTEND Psychiatry & Neurology Psychiatry
DX: F33.1 Major depressive disorder, recurrent, moderate (principal); F03.90 Unspecified dementia, unspecified severity, without behavioral disturbance, psychotic disturbance, mood disturbance, and anxiety; G62.9 Polyneuropathy, unspecified; F41.1 Generalized anxiety disorder; I25.10 Atherosclerotic heart disease of native coronary artery without angina pectoris; I10 Essential (primary) hypertension; E78.5 Hyperlipidemia, unspecified; I25.2 Old myocardial infarction; Z95.5 Presence of coronary angioplasty implant and graft; Z79.82 Long term (current) use of aspirin; Z79.02 Long term (current) use of antithrombotics/antiplatelets
CPT/HCPCS: 80048; 80053; 80061; 80307; 81001; 82550; 82552; 82746; 83036; 84436; 84443; 84484; 85025; 85048; 86038